=== PATIENT | female | born 1995 | race Caucasian/White ===

== ENCOUNTER 2020-08-13 01:39 | Emergency (ER) | payer BC ==
[~2020-08-13] VITALS: Ht 170.2 cm; Wt 60.7 kg
--- NOTE | 2020-08-13 01:49 | NUR ---
SEE TRIAGE: PT. RECEIVED 750ML NS [employer]. DR. ROBERTSON WAS IN TO EVAL PT. AND DISCUSS POC. EKG DONE AND PRESENTED TO ERP. SPO2, CARDIAC, AND B/P MONITORS PLACED. FRIEND TO BS FOR SUPPORT. POC DISCUSSED AND PT. AGREES WITH POC.
[2020-08-13] MEDS ORDERED: SODIUM CHLORIDE FLUSH 10ML SYR IVF ONE (02:00)
[2020-08-13] MEDS ORDERED: SODIUM CHLORIDE 0.9% 1,000ML IVBOLUS ONE (02:00)
[2020-08-13 02:54] LABS: ALANINE AMINOTRANSFERASE 22 U/L (12-78); ALBUMIN 3.7 g/dL (3.4-5.0); ALKALINE PHOSPHATASE 44 U/L (45-117); ANION GAP 8 mmol/L (5-15); BASOPHILS % (AUTO) 0 % (0-1); BILIRUBIN,TOTAL 0.4 mg/dL (0.2-1.0); CALCIUM 8.1 mg/dL (8.5-10.1); CHLORIDE 111 mmol/L (98-107); CREATININE 0.73 mg/dL (0.55-1.02); EOSINOPHILS % (AUTO) 1 % (1-7); LYMPHOCYTES % (AUTO) 29 % (22-44); MEAN CORPUSCULAR HEMOGLOBIN 30.4 pg (27.0-34.8); MEAN CORPUSCULAR HGB CONC 33.9 g/dL (32.4-35.8); MONOCYTES % (AUTO) 9 % (2-9); NEUTROPHILS % (AUTO) 61 % (42-75); PLATELET COUNT 160 x10^3/uL (130-400); RED BLOOD COUNT 4.01 x10^6/uL (3.82-5.3); RED CELL DISTRIBUTION WIDTH 12.8 % (9.6-15.2); TOTAL PROTEIN 6.3 g/dL (6.4-8.2)
[2020-08-13 02:55] LABS: MD NO
--- NOTE | 2020-08-13 03:15 | NUR ---
PT WAS REQUESTING IV TO BE REMOVED.
--- NOTE | 2020-08-13 03:17 | NUR ---
DR. ROBERTSON IN TO DISCUSS POC WITH PT. AND FRIEND. ORTHO B/P'S WERE OBTAINED DURING COMPUTER DOWNTIME AND REPORTED TO DR. ROBERTSON AT TIME OF COMPLETION.
[2020-08-13] MEDS ORDERED: POTASSIUM CHLORIDE 20 MEQ TAB.ER.PRT ONE (03:27)
[2020-08-13] MEDS ORDERED: POTASSIUM CHLORIDE 20 MEQ TAB.ER.PRT PO ONE (03:30)
[2020-08-13 03:32] VITALS: BP 110/72
--- NOTE | 2020-08-13 03:48 | NUR ---
Patient given discharge instructions and they have confirmed that they understand the instructions. Patient ambulatory with steady gait. No questions at time of discharge.
== END 2020-08-13 03:51 | disposition home or self-care (01) ==
LOC: ED 01:48
DX: E87.6 Hypokalemia (principal); R55 Syncope and collapse; R42 Dizziness and giddiness; R51.9 Headache, unspecified; F17.200 Nicotine dependence, unspecified, uncomplicated
CPT/HCPCS: 36415; 70450; 80053; 84703; 85025; 93005; 96360; 99285; J7030